=== PATIENT | male | born 1945 | race Caucasian/White ===

== ENCOUNTER 2017-09-07 06:42 | Day surgery (SDC) | payer MEDICARE, MEDICAID ==
[~2017-09-07 06:42] MED LIST: RINGER'S SOLUTION,LACTATED 1,000 ML IV PRN; ROPIVACAINE HCL/PF 40 MG in NORMAL SALINE 16 ML IJ PRN; ceFAZolin SODIUM 1 GM VIAL IV PRN
[2017-09-07] MEDS ORDERED: RINGER'S SOLUTION,LACTATED 1,000 ML IV ONE (07:15)
[2017-09-07] MEDS ORDERED: BUPIVACAINE HCL/EPINEPHRINE 50 ML VIAL IJ ONE (08:05)
--- NOTE | 2017-09-07 08:37 | POSTOP NO ---
Date of Surgery: 09/07/17 Patient Tolerated the Procedure: Well Post Operative Diagnosis/Procedures: Motion Picture Camera Operator: Jorge Lopez PA-C Post-operative Diagnosis: Left knee hypertrophic Hoffa's fat pad, lateral meniscus tear, loose bodies Finding: Above Procedure: Left knee arthroscopy partial lateral meniscectomy, excision of office fat pad, removal of loose bodies Estimated Blood Loss: Minimal Specimens: None
--- NOTE | 2017-09-07 08:41 | OR ---
Operative Report - Dictated Report Narrative: Date: 09/07/2017 Physician: Haja Majano M.D. Plant Operations Vice President: Jorge Lopez PA-C Preoperative diagnosis: Left Knee hypertrophic Hoffa's fat pad, possible medial meniscus tear Postoperative diagnosis: Left Knee lateral meniscus tear , hypertrophic Hoffa's fat pad, loose bodies Procedure: Left knee arthroscopy with partial lateral meniscectomy, excision of cuff set pad, removal of loose bodies Anesthesia: MAC Plus local Complications: None Estimated blood loss: Minimal Tourniquet time: None Specimens: None Retained implants: None Drains: None Indications: Mr. Berry Is a 72 year-old gentleman who has been followed in my clinic with complaints of knee pain consistent with suspected intra-articular knee pathology. Physical exam and diagnostic imaging were consistent with these complaints and concern for possible meniscus pathology. Conservative measures have failed including, but not limited to, passage of time, activity modification, medications, and injections. The risks, benefits, and alternatives were discussed in clinic. The risks being , bleeding, infection, blood clots, nerve, tendon, ligament, blood vessel injury, persistent pain, arthrosis, need for additional procedures, and persistent symptoms. Consent was obtained in the clinic. Procedure: After marking the correct extremity in the preoperative holding area, a timeout was performed in the operating room. IV antibiotics consisting of Ancef were administered prior to the procedure. A well-padded tourniquet was applied to the operative upper thigh. The leg was prepped and draped in a standard sterile fashion. 0.5% Marcaine with epinephrine was infused into the projected portal sites as well as the intra-articular space. A hannah incision was made for inferior lateral portal. A blunt trocar and cannula was introduced into the knee. The suprapatellar pouch revealed no pathology. The medial patella facet showed no arthrosis. The lateral patella facet showed no arthrosis. The trochlea showed no arthrosis however there was impinging Hoffa's fat pad. The medial gutter revealed no pathology. The medial joint space was then entered utilizing a lateral post and valgus stress. A spinal needle was utilized for guidance into placement of an anterior medial portal. This was placed just superior to the medial meniscus ensuring that we could reach the posterior aspect of the medial joint space. A hannah incision was made in the site, and the probe was introduced to the knee. The medial joint space was examined, and the medial femoral condyle showed no arthrosis however there were notable small chondral loose bodies. The medial tibial plateau showed no arthrosis. The medial meniscus no tear. The notch was then examined, and the ACL was noted to be intact. The PCL was noted to be intact. The lateral joint space was then examined using a varus force in the figure 4 position. Lateral femoral condyle showed no arthrosis. Lateral tibial plateau showed no arthrosis. The lateral meniscus showed a small focal root tear involving approximately 10% of the depth. The lateral gutter showed pathology. Having identified the surgical pathology, a shaver was utilized in order to debride the root of the lateral meniscus as well as to excise a significant portion of the retropatellar fat pad. The shaver was also utilized in order to remove the small chondral loose bodies. Once it was felt that we adequately addressed the pathology, the knee was thoroughly irrigated. The fluid was evacuated ensuring that we have removed all meniscal, chondral, and any other loose bodies. A final evaluation of the joint showed no additional pathology. The fluid was then evacuated of the knee, and the trocar and camera were removed from the joint. The wounds were closed with interrupted nylon after placing 20 mL of 0.2% ropivacaine into the joint. Dressings consisting of Xeroform, 4 x 4, ABD, soft roll, and an Lam were applied. All sponge, needle, blade, and instrument counts were correct prior to closing the wounds. The patient was awoken and transferred to the postanesthesia care unit in stable condition.
[2017-09-07 09:48] VITALS: BP 122/68
== END 2017-09-07 06:43 | disposition home or self-care (01) ==
LOC: AMB 06:42
PROVIDERS: ATTEND Orthopaedic Surgery
PROC: 0SBD4ZZ Excision of Left Knee Joint, Percutaneous Endoscopic Approach (ICD-10-PCS; principal; 2017-09-07)
DX: M23.201 Derangement of unspecified lateral meniscus due to old tear or injury, left knee (principal); M79.4 Hypertrophy of (infrapatellar) fat pad; M23.42 Loose body in knee, left knee; J30.9 Allergic rhinitis, unspecified; E53.8 Deficiency of other specified B group vitamins; M51.36 Other intervertebral disc degeneration, lumbar region; Z87.891 Personal history of nicotine dependence; Z79.02 Long term (current) use of antithrombotics/antiplatelets; J44.9 Chronic obstructive pulmonary disease, unspecified